=== PATIENT | female | born 1980 | race Caucasian/White ===

== ENCOUNTER 2025-01-09 09:43 | Emergency (ER) | payer MEDICAID, SELFPAY ==
[2025-01-09 09:45] VITALS: BP 125/82; PULSE 88; RESP 18; O2SAT 97
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
--- NOTE | 2025-01-09 13:56 | CMSP_ITS ---
Date of service: 01/09/25 Time of Service: 13:56 Care Management Safety Plan Status Status: Voluntary Reason for Wait Reason for Wait: Inpatient Admission Safety Plan Safety Plan: VOLUNTARY FOR INPATIENT PSYCHIATRIC STABILIZATION.? Patient is appropriate in all interactions since arriving at [facility]; Pt has demonstrated appropriate coping and communication skills, has articulated his or her needs and concerns and is fully engaged during staff interactions. Safety plan has been established with patient, and care team, to adhere to patient goals, identify restrictions based on behavioral status, address nutrition, and determine allowed personal belongings, tools for hygiene and personal care. Determine level of activity including ambulation, level of supe rvision, visitors, and determine privileges based on behaviors and level of engagement by pt. VOLUNTARY SAFETY PLAN: 1. Will remain on suicide precautions, in paper clothes 2. Will remain in Zone B under direct supervision of one-on-one staff at all times provided by [employer]; BRIDGER, PANELBEATER malt house supervisor. 3. May have paper cups, plates, finger foods as well as a cardboard spoon with which to eat meals. 4. Follow [facility] Management of the Admitted Behavioral Health Patient policy. 5. Shower available in Zone B without restriction. 6. Personal belongings-soft items permitted at RN discretion. 7. Visitors-none at this time. 8. Activities: soft cart items, hospital tablets (Netflix/Webber+/music) approved per RN discretion. 9.? Bathroom available in Zone B without restriction. 10. Phone: limited to [facility] cordless phone at RN discretion. Due to VOLUNTARY status, if patient wishes to leave [facility], staff will contact [facility] Crisis Screener ([phone]) and Cosmetic Counselor ([phone]) as soon as possible. In the event of elopement, notify [facility] Police ([phone]). Patient is currently voluntarily at [facility] and seeking inpatient admission when a bed becomes available. [facility] Frontline Naval Gunfire Spotter will continue seeking placement. Please contact the Cosmetic Counselor ([phone]) and [facility] Naval Gunfire Spotter ([phone]) for any needed changes in the Safety Plan. Safety plan has been provided to interdepartmental care team.
--- NOTE | 2025-01-09 13:56 | PDOC.CMSAFE ---
Date of service: 01/09/25 Time of Service: 13:56 Care Management Safety Plan Status Status: Voluntary Reason for Wait Reason for Wait: Inpatient Admission Safety Plan Safety Plan: VOLUNTARY FOR INPATIENT PSYCHIATRIC STABILIZATION.? Patient is appropriate in all interactions since arriving at [facility]; Pt has demonstrated appropriate coping and communication skills, has articulated his or her needs and concerns and is fully engaged during staff interactions. Safety plan has been established with patient, and care team, to adhere to patient goals, identify restrictions based on behavioral status, address nutrition, and determine allowed personal belongings, tools for hygiene and personal care. Determine level of activity including ambulation, level of supervision, visitors, and determine privileges based on behaviors and level of engagement by pt. VOLUNTARY SAFETY PLAN: 1. Will remain on suicide precautions, in paper clothes 2. Will remain in Zone B under direct supervision of one-on-one staff at all times provided by [employer]; BRIDGER, INFORMATION TECHNOLOGY SPECIALIST hat body inspector. 3. May have paper cups, plates, finger foods as well as a cardboard spoon with which to eat meals. 4. Follow [facility] Management of the Admitted Behavioral Health Patient policy. 5. Shower available in Zone B without restriction. 6. Personal belongings-soft items permitted at RN discretion. 7. Visitors-none at this time. 8. Activities: soft cart items, hospital tablets (Netflix/Megan+/music) approved per RN discretion. 9.? Bathroom available in Zone B without restriction. 10. Phone: limited to [facility] cordless phone at RN discretion. Due to VOLUNTARY status, if patient wishes to leave [facility], staff will contact [facility] Crisis Screener ([phone]) and Smocker ([phone]) as soon as possible. In the event of elopement, notify [facility] Police ([phone]). Patient is currently voluntarily at [facility] and seeking inpatient admission when a bed becomes available. [facility] Frontline Flying Shear Operator will continue seeking placement. Please contact the Smocker ([phone]) and [facility] Flying Shear Operator ([phone]) for any needed changes in the Safety Plan. Safety plan has been provided to interdepartmental care team.
--- NOTE | 2025-01-09 13:57 | PDOC.CMPRO ---
Date of service: 01/09/25 Time of Service: 13:57 Care Management Progress Note Progress Note Text Progress Note Text: CM met with [facility] and ED staff regarding Gunjan's plan of care. Per RN, Gunjan has had periods of escalation, but has been redirectable. Per report, a psychiatric consultation has been placed. Per [facility], Gunjan is originally from [facility], and was asked to leave a fpc there. She then was accepted to the fpc in [facility], where she expressed concern about her blood sugar being low; per report, she was assessed by EMS and was brought in to the ED for a mental health evaluation. Per [facility], she is voluntary, but if she asks to leave, they will consider writing an EE due to her concerning presentation. Per [facility], she is disorganized and tangential and presenting with delusional thinking. Gunjan is currently voluntary, seeking inpatient psychiatric treatment. Referrals were sent by [facility] to facilities. Safety plan in place; CM will continue to follow. Social Determinants of Health Screening Will the Patient Participate in the Screening?: Unable to obtain
[2025-01-09 14:02] LABS: Bilirubin Negative (Negative); Blood Negative (Negative); Clarity Clear (Clear); Glucose >=1000 mg/dL (Negative); Ketones Negative (Negative); Leukocyte Esterase Negative (Negative); Nitrite Negative (Negative); Specific Gravity 1.015 (1.005-1.025); Urobilinogen 0.2 mg/dL (Up to 0.2)
[2025-01-09 14:14] LABS: Bacteria Negative HPF (Negative); C & S Indicated? Yes; Casts Negative LPF (Negative); Crystals Negative HPF (Negative); Epithelial Cells Rare HPF (Negative); Mucus Negative (Negative); RBC Negative HPF (0-2)
[2025-01-09 14:18] LABS: Abs Immature Grans 0.03 10^3/uL (0.0-0.06); Absolute Basophil Count 0.04 10^3/uL (0.0-0.2); Absolute Eosinophil Count 0.07 10^3/uL (0.0-0.7); Absolute Lymphocyte Count 3.32 10^3/uL (1.2-3.4); Absolute Monocyte Count 0.46 10^3/uL (0.1-0.8); Absolute Neutrophil Count 6.29 10^3/uL (1.2-6.7); Basophils % 0.4 %; Eosinophils % 0.7 %; HCT 44.5 % (36.0-46.0); HGB 14.7 g/dL (11.2-15.7); Immature Grans % 0.3 %; Lymphocytes % 32.5 %; MCH 30.1 pg (27.0-33.0); MCV 91 fL (80-95); MPV 10.7 fL (8.0-11.0); Monocytes % 4.5 %; Neutrophils % 61.6 %; Platelet Count 256 10^3/uL (130-400); RBC 4.89 10^6/uL (3.93-5.22); RDW 13.4 % (11.7-14.6); RDW-SD 44.5 fL; WBC 10.21 10^3/uL (4.4-10.8)
[2025-01-09 14:20] LABS: *AMPHETAMINES SCREEN URINE Negative (Negative); *BARBITURATES SCREEN URINE Negative (Negative); *BENZODIAZEPINES SCREEN URINE Negative (Negative); Cannabinoids THC Negative (Negative); Cocaine Screen,Urine Negative (Negative); METHADONE URINE SCREEN Negative (Negative); OPIATES URINE SCREEN Negative (Negative)
[2025-01-09 14:21] LABS: Tricyclic Antidepressants Negative (Negative)
[2025-01-09 14:36] LABS: Salicylate < 2.8 mg/dL (<2.8)
[2025-01-09 14:37] LABS: Acetaminophen < 2 ug/mL (10-30)
[2025-01-09 14:42] LABS: ALT 16 U/L (14-59); AST 21 U/L (15-37); Alkaline Phosphatase 58 U/L (46-116); Anion Gap 8.2 mmol/L (3-11); BUN 15 mg/dL (7-18); Bilirubin, Total 0.3 mg/dL (0.2-1.0); CO2 29.8 mmol/L (21.0-32.0); Calcium 8.8 mg/dL (8.5-10.1); Chloride 103 mmol/L (98-107); ETHANOL BLOOD < 3.0 mg/dL (<10); Estimated GFR 71.69 (mL/min/1.73m2); Glucose 224 mg/dL (74-106); Potassium 3.9 mmol/L (3.5-5.1); Sodium 141 mmol/L (136-145); TSH (W/Ref FT4) 1.14 uIU/mL (0.36-3.74); Total Protein 7.1 g/dL (6.4-8.2)
--- NOTE | 2025-01-09 16:23 | PDOC.MHCN ---
Date of service: 01/09/25 Time of Service: 10:30 PHQ-9 Over the last 2 weeks, how often have you been bothered by any of the following problems? 1. Little interest or pleasure in doing things: not at all 2. Feeling down, depressed, or hopeless: several days 3. Trouble falling or staying asleep, or sleeping too much: not at all 4. Feeling tired or having little energy: not at all 5. Poor appetite or overeating: several days 6. Feeling bad about yourself - or that you are a failure or have let yourself and your family down: several days 7. Trouble concentrating on things, such as reading the newspaper or watching television: several days 8. Moving or speaking so slowly that other people could have noticed? - Or the opposite - being so fidgety or restless that you have been moving around a lot more than usual: several days 9. Thoughts that you would be better off or of hurting yourself in some way: not at all Total score: 5 Source: Developed by Drs. Brice Kemp, Vibha Tracy, Keny Alas and colleagues, with an educational shelby from [employer]. Suicide Severity Rate CSSRS Have you wished you were or wished you could go to sleep and not wake up?: No Have you actually had any thoughts of killing yourself?: Yes CSSRS2 Have you been thinking about how you might do this?: No Have you had these thoughts and had some intention of acting on them?: No Have you started to work out or worked out the details of how to kill yourself? Do you intend to carry out this plan?: No CSSRS3 Have you ever done anything, started to do anything or prepared to do anything to end your life?: Yes CSSRS4 Was this within the past three months?: No Screening Score Total Score: 4 Screening: Positive Mental Health Emergency Note Release [facility] release signed:: Yes Reason for Visit This female patient is suffering from auditory voices, manic behaviors, and stopped taking her psych medications In the last 2 weeks has the pt presented for ES prior to today?: No Client Information Client is: New Well Housed: No,status: Homeless Non Suicidal Self Injury Current: No History: No Safety Risk/Harm to Self or Others Current Ideation to Harm Self or Others: No Risk: Does risk to harm exist?: No Risk: Moderate Risk Duty to warn indicated: No Asssessment/Mental Status Appearance: Other (paper scrubs) Attitude: Cooperative, Guarded and Friendly Behavior: Hyperactivity and Poor impulse control Speech: Normal and Loud Affect: Inappropriate and Expansive Mood: Elevated, Expansive, Sad and Anxious Thought process: Loose associations and Circumstational Hallucinations: yes, Auditory Delusions: No Attention: Wandering and Poor concentration Perception: Not impaired Orientation: Fully orientated Memory: Intact (scattered possibly invalid) Insight: Poor Judgement: Poor Neurovegetative Symptoms Sleep: No change Appetitie: No change Interests: No change Energy: No change Libido: Not applicable Substance Use: Other (would not say) Drug Issues: Other (none) Do you use nicotine?: No Have you used substances in the last 7 days?: No Impression This client presented on zone B as very scattered and talkative. She appears to be manic with possible multi personality disorder issues. She was pleasant, alert, very verbal but unfocused about her personal situation. She had a very difficult time focusing on any one question asked of her and then went on a tangent about many other topics. She was able to be redirected but only for a few seconds before moving on to another topic. she did at times become emotional and then verbally loud apologizing shortly afterward about her level of volume. She could become a danger to herself due to quick acting decisions she makes which can be dangerous like walking at 5am on [address] by herself. This client realizes that she should go inpatient to address her psychiatric needs and is currently willing to stay voluntarily to address those concerns however if she should have a change of mind and want to leave an EE will be initiated.? Resources Reosurces reviewed and given:: 988 and [facility] Plan/Disposition Recommended Disposition: Hospitalization facilities contacted. Plan: Patient will stay voluntarily until an inpatient bed is available to treat her mental health, if she decides to discharge and EE has been preliminarily written and will be utilized for her campus safety officer reported agreement to plan: Yes Facilities contacted if Applicable [facility] Not accepted, (reviewing) No bed available [facility] (reviewing) [facility] available [facility] Not accepted, (reviewing) No bed available Reports/communication Outcome discussed with: ED/Personnel
--- NOTE | 2025-01-09 16:55 | W.EDPROG ---
Date of service: 01/09/25 Time of Service: 16:56 Medical Decision Making I received signout on this 44-year-old female. She has a history of bipolar and is currently in an acute exacerbation with nataly and reportedly labile and intermittently aggressive behavior. Patient was recently discharged from [facility]. Patient is here voluntarily seeking treatment. Patient has been evaluated by crisis team who agrees with need for hospitalization. Patient has been medically screened and no acute life-threatening emergent medical condition identified. Patient does have hyperglycemia with poorly controlled diabetes. Prescribed insulin has been ordered. Plan to monitor. Psychiatric teleconsult pending. 10:55 PM No active behavioral issues on my shift. Will sign patient out to Dr. Blanco. Quality:[facility] Health Related Social Needs: No Data to Display Discharge Plan Discharge Details Chief Complaint: PsychEval Primary Care Provider: None,None ED Provider: Jonathan Osman [place] Meds and New Rx's Prescriptions: No Action aripiprazole [Abilify] 15 mg tablet 15 mg PO DAILY insulin glargine 100 unit/mL (3 mL) insulin pen 40 unit subcut BID Patient Comments: Prescribed as 80 Units daily Mounjaro 2.5 mg/0.5 mL pen injector 2.5 mg subcut QWEEK Rx Instructions: for 4 weeks
[2025-01-09 19:32] VITALS: BP 134/84; PULSE 83; RESP 18; TEMP 37; O2SAT 98
[2025-01-09] MEDS: Insulin Glargine 300 UNITS/3 ML PEN 40 UNITS SC (21:11)
--- NOTE | 2025-01-10 06:43 | W.EDPROG ---
Date of service: 01/10/25 Time of Service: 06:43 Medical Decision Making Patient is here for voluntary inpatient admission for psychiatric stabilization. She has been cooperative overnight with no issues. Quality:[facility] Health Related Social Needs: No Data to Display Discharge Plan Discharge Details Chief Complaint: PsychEval Primary Care Provider: None,None ED Provider: Brice Blanco and New Rx's Prescriptions: No Action aripiprazole [Abilify] 15 mg tablet 15 mg PO DAILY insulin glargine 100 unit/mL (3 mL) insulin pen 40 unit subcut BID Patient Comments: Prescribed as 80 Units daily Mounjaro 2.5 mg/0.5 mL pen injector 2.5 mg subcut QWEEK Rx Instructions: for 4 weeks
--- NOTE | 2025-01-10 06:59 | W.EDPROG ---
Date of service: 01/10/25 Time of Service: 07:00 Medical Decision Making Patient seeking voluntary placement for decompensated bipolar disorder, no issues reported on prior shift and currently no new acute complaints. Will continue to monitor until safe disposition found Quality:[facility] Health Related Social Needs: No Data to Display Discharge Plan Discharge Details Chief Complaint: PsychEval Primary Care Provider: None,None ED Provider: Brice Blanco [place] and New Rx's Prescriptions: No Action aripiprazole [Abilify] 15 mg tablet 15 mg PO DAILY insulin glargine 100 unit/mL (3 mL) insulin pen 40 unit subcut BID Patient Comments: Prescribed as 80 Units daily Mounjaro 2.5 mg/0.5 mL pen injector 2.5 mg subcut QWEEK Rx Instructions: for 4 weeks
[2025-01-10] MEDS: Insulin Glargine 300 UNITS/3 ML PEN 40 UNITS SC ×2 (09:17→19:49)
[2025-01-10] MEDS: ARIPiprazole 15 MG TAB PO (09:18)
--- NOTE | 2025-01-10 09:20 | CMSP_ITS ---
Date of service: 01/10/25 Time of Service: 09:20 Care Management Safety Plan Status Status: Voluntary Reason for Wait Reason for Wait: Inpatient Admission (Awaiting inpatient Psych Treatment at an accepting facility) Safety Plan Safety Plan: VOLUNTARY FOR INPATIENT PSYCHIATRIC STABILIZATION.? Safety plan has been established with patient, and care team, to adhere to patient goals, identify restrictions based on behavioral status, address nutrition, and determine allowed personal belongings, tools for hygiene and personal care. Determine level of activity including ambulation, level of supervision, visitors, and determine privileges based on behaviors and level of engagement by pt. Interdepartmental huddle took place at 1:45pm, and is attended by Danay/ YENY, Hao/primary RN, ER CCRN, RN gasket supervisor and CM. It was identified that Gunjan has very limited support in the community, she is in the middle of a divorce and her mother a few months ago. She is from [facility] and new to the area. She is homeless and has a no- trespass order in place on all of the [facility] facilities, in addition to many of the shelters in [place]. She was staying at the [facility] and is not allowed back. Gunjan is very focused on her diabetic regimen (lantus, lancets), as a result is non compliant with her bi-polar medication ie.) Abilify. Gunjan is still agreeable to Inpatient psych placement (including [facility], per Danay). [facility] will consider writing an EE if she decides to leave. Referrals are pending ([facility] does not have Beds, and [facility] is at capacity in accordance with their staffing.) Gunjan would benefit from additional support in the community and would likely quality for CHIEF CONSTRUCTION INSPECTOR. [facility] will place a referral, if pt is agreeable. VOLUNTARY SAFETY PLAN: 1. Will remain on suicide precautions, in paper clothes 2. Will remain in Zone B under direct supervision of one-on-one staff at all times provided by [employer]; BRIDGER, MIDDLE SCHOOL HISTORY TEACHER supervisor dock. 3. May have paper cups, plates, finger foods as well as a cardboard spoon with which to eat meals. 4. Follow [facility] Management of the Admitted Behavioral Health Patient policy. 5. Shower available in Zone B without restriction. 6. Personal belongings-soft items permitted at RN discretion. 7. Visitors-none at this time. 8. Activities: soft cart items, hospital tablets (Netflix/Meagn+/music) approved per RN discretion. 9.? Bathroom available in Zone B without restriction. 10. Phone: Usage is limited to legal (via [facility] cordless phone.) No personal calls at this time. Due to VOLUNTARY status, if patient wishes to leave [facility], staff will contact [facility] Crisis Screener ([phone]) and Optical Dispenser ([phone]) as soon as possible. In the event of elopement, notify [facility] Police ([phone]). Patient is currently voluntarily at [facility] and seeking inpatient admission when a bed becomes available. [facility] Frontline Infusion Rn will continue seeking placement. Please contact the Optical Dispenser ([phone]) and [facility] Infusion Rn ([phone]) for any needed changes in the Safety Plan. Safety plan has been provided to interdepartmental care team.
--- NOTE | 2025-01-10 09:20 | PDOC.CMSAFE ---
Date of service: 01/10/25 Time of Service: 09:20 Care Management Safety Plan Status Status: Voluntary Reason for Wait Reason for Wait: Inpatient Admission (Awaiting inpatient Psych Treatment at an accepting facility) Safety Plan Safety Plan: VOLUNTARY FOR INPATIENT PSYCHIATRIC STABILIZATION.? Safety plan has been established with patient, and care team, to adhere to patient goals, identify restrictions based on behavioral status, address nutrition, and determine allowed personal belongings, tools for hygiene and personal care. Determine level of activity including ambulation, level of supervision, visitors, and determine privileges based on behaviors and level of engagement by pt. Interdepartmental huddle took place at 1:45pm, and is attended by Danay/ YENY, Hao/primary RN, ER CCRN, RN electrician supervisor airplane and CM. It was identified that Gunjan has very limited support in the community, she is in the middle of a divorce and her mother a few months ago. She is from [facility] and new to the area. She is homeless and has a no-trespass order in place on all of the [facility] facilities, in addition to many of the shelters in [place]. She was staying at the [facility] and is not allowed back. Gunjan is very focused on her diabetic regimen (lantus, lancets), as a result is non compliant with her bi-polar medication ie.) Abilify. Gunjan is still agreeable to Inpatient psych placement (including [facility], per Danay). [facility] will consider writing an EE if she decides to leave. Referrals are pending ([facility] does not have Beds, and [facility] is at capacity in accordance with their staffing.) Gunjan would benefit from additional support in the community and would likely quality for HIGH PRESSURE CLEANER. [facility] will place a referral, if pt is agreeable. VOLUNTARY SAFETY PLAN: 1. Will remain on suicide precautions, in paper clothes 2. Will remain in Zone B under direct supervision of one-on-one staff at all times provided by [employer]PSO; BRIDGER, ENROLLMENT MANAGEMENT COORDINATOR medical affairs director. 3. May have paper cups, plates, finger foods as well as a cardboard spoon with which to eat meals. 4. Follow [facility] Management of the Admitted Behavioral Health Patient policy. 5. Shower available in Zone B without restriction. 6. Personal belongings-soft items permitted at RN discretion. 7. Visitors-none at this time. 8. Activities: soft cart items, hospital tablets (Netflix/[place]+/music) approved per RN discretion. 9.? Bathroom available in Zone B without restriction. 10. Phone: Usage is limited to legal (via [facility] cordless phone.) No personal calls at this time. Due to VOLUNTARY status, if patient wishes to leave [facility], staff will contact [facility] Crisis Screener ([phone]) and Vp Product Management ([phone]) as soon as possible. In the event of elopement, notify [facility] Police ([phone]). [facility] is [facility] and seeking inpatient admission when a bed becomes available. [facility] Frontline Mechanical Drafter will continue seeking placement. Please contact the Vp Product Management ([phone]) and [facility] Mechanical Drafter ([phone]) for any needed changes in the Safety Plan. Safety plan has been provided to interdepartmental care team.
[2025-01-10 09:28] VITALS: BP 121/77; PULSE 85; RESP 20; TEMP 36.7; O2SAT 98
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
--- NOTE | 2025-01-10 12:00 | RT.EKG_ITS ---
APPROVED REPORT Exam: Resting ECG Reason for Exam: measure qtc Patient Location: E HR:77 bpm ECG Measurements Heart Rate 77 AXIS IA 114 P 37 QRSd 79 QRS -7 QT 385 T 138 QTc 437 Conclusion Sinus rhythm...normal P axis, V-rate 60- 99 Probable LVH with secondary repol abnrm...multiple LVH criteria
--- NOTE | 2025-01-10 14:54 | PDOC.MHPN2 ---
Date of service: 01/10/25 Time of Service: 14:54 Mental Health Emergency Note Release [facility] release signed:: Yes Reason for Visit The client is new to [facility] completing intake on 01.09.25. She reports she has been hospitalized numerous times in the past and her most recent was at . It is unknown when she was last seen in her hometown community of [facility]. Today this clinician performed a reassessment of the client as she awaits inpatient treatment. In the last 2 weeks has the pt presented for ES prior to today?: Unknown Client Information Client is: New Impression The client is a 44-year-old, , female who has been homeless and living in shelters. Additionally, she recently lost her mother 6 weeks ago, has diabetes that she has not been successfully able to manage due to the lack of being able to get needed supplies and has been evicted from many shelters due to symptoms relating to a reported bipolar diagnosis. She uses She/Her pronouns. All underrepresented categories were honored during this assessment. The client still presents as tangential however, per report of how she was behaving yesterday she is much more responsive and controlling her behaviors. This could likely be due to getting more sleep, the starting of Zyprexa at the recommendation of her telepsychiatry appointment and her blood sugars being more regulated. She makes good eye contact and is friendly and cooperative. She is using her artistic skills to write poetry and draw on the chalk board and is listening to music on the TV. She did report disruptive sleep due to nightmares. The client denied SI and HI. Resources Reosurces reviewed and given:: [facility] Plan/Disposition Recommended Disposition: Hospitalization facilities contacted. Plan: Potential acceptance once beds become available to and [facility]. [place] declined her. The client will remain at [facility] pending acceptance. The [facility] Bed was a possibility however, they are expecting an admission early next week and that would not allow for proper time to get services involved for her. Person reported agreement to plan: Yes Reports/communication Outcome discussed with: ED/Personnel
--- NOTE | 2025-01-10 15:06 | ED.PROG_ITS ---
Date of service: 01/10/25 Time of Service: 15:29 Medical Decision Making In brief, this is a 44-year-old female patient with a past medical history significant for bipolar disorder, diabetes, currently homeless, who is boarding in our emergency department for decompensated mental health. She has been medically cleared, is voluntary, denying suicidal and homicidal ideation, though did have some agitated behaviors on initial presentation to our facility. She is now taking her medications, has been calm and cooperative, and is awaiting placement for ongoing mental health support. During my shift, the patient was accepted to [facility], doc to doc report was given to Ligia Michaud. Transferred by EMS to [facility] without incident. Yesica Holm MD Medical Records Medical records reviewed: Yes I reviewed the patient's medical records. Lab Data Lab results reviewed: Yes I reviewed the patient's lab results. Quality:[facility] Health Related Social Needs: No Data to Display Discharge Plan Disposition Patient Disposition: Psychiatric Hospital/Unit Specific Psychiatric Facility: [facility] Condition: Stable Discharge Details Clinical Impression: Bipolar 1 disorder Primary Care Provider: None,None ED Provider: Yesica Holm Home Meds and New Rx's Prescriptions: No Action aripiprazole [Abilify] 15 mg tablet 15 mg PO DAILY insulin glargine 100 unit/mL (3 mL) insulin pen 40 unit subcut BID Patient Comments: Prescribed as 80 Units daily Mounjaro 2.5 mg/0.5 mL pen injector 2.5 mg subcut QWEEK Rx Instructions: for 4 weeks
--- NOTE | 2025-01-11 07:57 | NUR.NOTE ---
Accessed Pt chart to document any antibiotics that were given on the Specimen report. However there were none prescribed. Specimen Report given to providers
== END 2025-01-10 20:11 ==
PROVIDERS: Student in an Organized Health Care Education/Training Program; Emergency Provider Emergency Medicine
DX: F31.9 Bipolar disorder, unspecified (principal); E11.9 Type 2 diabetes mellitus without complications
CPT/HCPCS: 00123; 36415; 36416; 80053; 80307; 81025; 82962; 93005; 96127; 99285; H0046; 80320; 80329; 81003; 81015; 84443; 85025; 87086; 93010; J1815